=== PATIENT | female | born 1985 | race Caucasian/White ===

== ENCOUNTER 2020-03-14 11:06 | Emergency (ER) | payer OTHER, SELFPAY ==
[2020-03-14] VITALS (17 sets, daily range): BP systolic 110–169; BP diastolic 57–74; PULSE 81–114; RESP 16–24; O2SAT 99–100
[2020-03-14 11:24] LABS: Bacteria Urine None Seen; RBC Urine None Seen (0-5/HPF); WBC Urine None Seen (0-5/HPF)
--- NOTE | 2020-03-14 11:27 | ED_ITS ---
HPI - <Crystal ChandlerKENDRICK - Last Filed: 03/14/20 19:53> General Chief complaint: OB/Uterine Contractions Stated complaint: having backpain/cramping Time Seen by Provider: 03/14/20 11:07 Source: patient Mode of arrival: Ambulatory Limitations: no limitations History of Present Illness HPI Narrative: 34yo female who is currently 24 weeks . She has a history of multiple miscarriages, pre-eclampsia a still at 37 week post abruption, and insulin dependent diabetes (DMI), presents emergency department today for bilateral back pain that started yesterday. Patient noticed this morning she had some intermittent cramping and pressure that has since resolved. She states in the past she had a urinary tract infection in her only symptom was back pain. Patient states she is still nauseated, has occasional vomiting. Last vomited this morning. She states this morning her blood sugar was 120 which is normal for her. Patient states she has not been diagnosed with preeclampsia in this , she states her blood pressures have been normal. She felt normal movement this morning. Patient denies any vaginal bleeding, fevers, cough, shortness of breath, chest pain, dizziness, headaches, vision changes, leg pain, dysuria, or any other concerns. Patient : Yes Related Data Previous Rx's Medication Instructions Recorded INSULIN LISPRO (#HUMALOG (SHORT 0 units SQ QDAY #3 vial 04/30/12 ACTING)) albuterol sulfate [Proventil HFA] 0 INH 1 #1 inh 10/27/12 cyclobenzaprine 0 PO SEE INSTRUCTIONS PRN #90 tab 01/11/16 omeprazole 0 PO SEE INSTRUCTIONS #90 cap 01/11/16 Allergies Allergy/AdvReac Type Severity Reaction Status Date / Time adhesive [ADHESIVE] Allergy Unknown hives Verified 03/14/20 11:14 bacitracin Allergy Unknown hives Verified 03/14/20 11:14 [From NEOSPORIN ([id number])] neomycin Allergy Unknown hives Verified 03/14/20 11:14 [From NEOSPORIN ([id number])] polymyxin B Allergy Unknown hives Verified 03/14/20 11:14 [From NEOSPORIN ([id number])] metoclopramide [From Reglan] AdvReac Intermediate Agitated Verified 03/14/20 11:14 Review of Systems <KENDRICK Sotomayor - Last Filed: 03/14/20 19:53> Review of Systems Narrative: REVIEW OF SYSTEMS: GENERAL: Denies fever, chills, malaise, or wt. loss. HENT: No head trauma, sore throat, or dysphagia. EYES: No loss of vision, double vision, eye pain, or irritation. CARDIOVASCULAR: No chest pain, palpitations, or orthopnea. RESPIRATORY: No shortness of breath or cough. GASTROINTESTINAL: Reports nausea and vomiting throughout , see HPI. GENITOURINARY: No flank pain, urinary incontinence, hesitancy, frequency, or dysuria. Reports bilateral back pain, see HPI. MUSCULOSKELETAL: No pain, weakness, or trauma. INTEGUMENTARY: No rash, lesions, or pruritus. NEURO: No numbness, tingling, memory loss, confusion, or headaches. PSYCH: No behavior or mood changes. [facility] - <KENDRICK Sotomayor - Last Filed: 03/14/20 19:53> Past Medical History Medical history: Reports other Additional medical history: Pre-eclampsia Patient : Yes Family History Family history: Reports no significant family history Exam <KENDRICK Sotomayor - Last Filed: 03/14/20 19:53> Initial Vital Signs Initial Vital Signs: Vital Signs Pulse Rate 111 H 03/14/20 11:14 Blood Pressure 169/74 H 03/14/20 11:14 Pulse Oximetry 99 03/14/20 11:14 PHYSICAL EXAMINATION: GENERAL: Well groomed, alert, and cooperative. Answers questions promptly and appropriately. Vital signs noted. HENT: Normocephalic, atraumatic. Hearing intact. Oral mucosa is pink and moist. EYES: Conjunctiva pink, sclera white, no periorbital swelling. CARDIOVASCULAR: S1 and S2 sounds normal. Regular rate and rhythm, no murmurs, clicks, or bruits. No pedal edema. RESPIRATORY: Normal respiratory rate, trachea midline, airway patent. No stridor, nasal flaring or accessory muscle use. Lungs are clear in all wheeler without wheeze, rhonchi, or crackles. GASTROINTESTINAL: Bowel sounds normoactive. Abdomen is soft and non-tender. Abdominal distension adequate for gestational age. Uterine fundus palpable. GENITALURINARY: Very slight right CVA tenderness. MUSCULOSKELETAL: Normal gait and coordination. Equal tone and mass bilaterally. EXTREMITIES: CMS intact, no pedal edema. SKIN: Warm, dry, soft, appropriate color for ethnicity. No lesions, rashes, or wounds to visualized areas. NEURO: Alert and Oriented X 3. Good coordination. No ataxia, or sensory deficits, or cognitive issues. PSYCH: Appropriate affect and mood. <Kenia Garza DO - Last Filed: 03/23/20 07:49> Initial Vital Signs Initial Vital Signs: Vital Signs Pulse Rate 111 H 03/14/20 11:14 Blood Pressure 169/74 H 03/14/20 11:14 Pulse Oximetry 99 03/14/20 11:14 Course <Crystal KENDRICK Chandler - Last Filed: 03/14/20 19:53> Course Course Narrative: 1134: heart tones auscultated at 144bpm at the level of the umbilicus. Dr. Garza in room at this time to also evaluate patient. 1214: BP continues to decrease from 160 systolic to 130/58 at this time, labetalol was initially ordered, not given due to decreasing blood pressure. 1329: I spoke with Dr. Ignacia Cordova MD at the maternal [facility] at the [facility], discussed patient's history, exam, tests, test results. She recommended adding on a uric acid, urine creatinine ratio, in continuing with workup. 1337: I spoke with [employer] Dr. Hernandez, discussed patient's history, exam, test, test results. She advise a cervical length ultrasound. 1340: Patient states she is feeling a, has felt a slight cramp in the past 10 minutes, she also states ?this is also normal when baby moves ?. 1400: I spoke with Dr. Hernandez, advised her the preliminary report of cervical length was 4.7cm. She stated this is very reassuring. We discussed the patient is doing well, does not necessitate a visit from her in the ED at this point. Orders Ordered: Discontinued Medications Sodium Chloride (Normal Saline 0.9%) 1,000 mls @ 1,000 mls/hr IV BOLUS ONE Stop: 03/14/20 12:22 Last Infusion: 03/14/20 12:35 Dose: 0 mls/hr Documented by: Admin: 03/14/20 11:39 Dose: 1,000 mls/hr Documented by: BOB Labetalol HCl (Trandate) 10 mg IV NOW ONE Stop: 03/14/20 11:45 Last Admin: 03/14/20 12:16 Dose: Not Given Documented by: BOB Consultations Consultation #1: Patient staffed with Dr. Garza discussed test, test results, plan of care. Vital Signs Vital signs: Vital Signs - 8 hr 03/14/20 11:48 03/14/20 12:00 03/14/20 12:15 Pulse Rate 100 H 91 H 94 H Respiratory Rate 24 Blood Pressure 146/65 H 130/58 L Pulse Oximetry 99 99 99 03/14/20 12:16 03/14/20 12:30 03/14/20 12:45 Pulse Rate 114 H 86 87 Respiratory Rate 16 16 Blood Pressure 145/62 H 132/57 L 139/64 Pulse Oximetry 99 99 99 03/14/20 13:00 03/14/20 13:01 03/14/20 13:15 Pulse Rate 87 88 81 Respiratory Rate Blood Pressure 130/63 110/62 Pulse Oximetry 99 100 100 03/14/20 13:30 03/14/20 13:45 03/14/20 14:00 Pulse Rate 84 82 81 Respiratory Rate Blood Pressure 121/65 122/65 118/61 Pulse Oximetry 99 100 99 03/14/20 14:15 Pulse Rate 81 Respiratory Rate Blood Pressure 119/61 Pulse Oximetry 99 <Kenia Garza, DO - Last Filed: 03/23/20 07:49> Orders Ordered: Discontinued Medications Sodium Chloride (Normal Saline 0.9%) 1,000 mls @ 1,000 mls/hr IV BOLUS ONE Stop: 03/14/20 12:22 Last Infusion: 03/14/20 12:35 Dose: 0 mls/hr Documented by: Admin: 03/14/20 11:39 Dose: 1,000 mls/hr Documented by: BOB Labetalol HCl (Trandate) 10 mg IV NOW ONE Stop: 03/14/20 11:45 Last Admin: 03/14/20 12:16 Dose: Not Given Documented by: BOB Vital Signs Vital signs: Vital Signs - 8 hr 03/14/20 11:48 03/14/20 12:00 03/14/20 12:15 Pulse Rate 100 H 91 H 94 H Respiratory Rate 24 Blood Pressure 146/65 H 130/58 L Pulse Oximetry 99 99 99 03/14/20 12:16 03/14/20 12:30 03/14/20 12:45 Pulse Rate 114 H 86 87 Respiratory Rate 16 16 Blood Pressure 145/62 H 132/57 L 139/64 Pulse Oximetry 99 99 99 03/14/20 13:00 03/14/20 13:01 03/14/20 13:15 Pulse Rate 87 88 81 Respiratory Rate Blood Pressure 130/63 110/62 Pulse Oximetry 99 100 100 03/14/20 13:30 03/14/20 13:45 03/14/20 14:00 Pulse Rate 84 82 81 Respiratory Rate Blood Pressure 121/65 122/65 118/61 Pulse Oximetry 99 100 99 03/14/20 14:15 Pulse Rate 81 Respiratory Rate Blood Pressure 119/61 Pulse Oximetry 99 MDM - OB/Uterine Contractions <KENDRICK Sotomayor - Last Filed: 03/14/20 19:53> Medical Records Attestation: I reviewed the patient's medical records. Lab Data Attestation: I reviewed the patient's lab results. Result diagrams: 03/14/20 11:30 03/14/20 11:30 Labs: Lab Results 03/14/20 03/14/20 03/14/20 Range/Units 11:12 11:12 11:30 WBC 11.2 H (4.5-11.0) X10^3/uL RBC 4.90 (4.0-5.2) X10^6/uL Hgb 9.1 L (12.0-16.0) g/dL Hct 29.5 L (36-46) % MCV 60.3 L (80-100) fL MCH 18.6 L (26-34) PG MCHC 30.8 (30-36) % RDW 18.8 H (11.6-14.8) % Plt Count 295 (150-400) X10^3/uL Neut % (Auto) 83.4 H (50-75) % Lymph % (Auto) 9.2 L (25-40) % [place] % (Auto) 5.9 (3-14) % Eos % (Auto) 1.2 L (2-4) % Baso % (Auto) 0.3 (0-2) % Neut # (Auto) 9300 H (9954-8015) /uL Lymph # (Auto) 1000 L (4117-2277) /uL [place] # (Auto) 700 (0-900) /uL Eos # (Auto) 100 (0-450) /uL Baso # (Auto) 0 (0-100) /uL RBC Morphology Not Reportable Polychromasia 1+ H Poikilocytosis 1+ H Anisocytosis 3+ H Microcytosis 2+ H Ovalocytes 1+ H PT (10.1-12.7) SECONDS INR (0.9-1.3) APTT (26.4-36.2) SECONDS Sodium (137-145) mmol/L Potassium (3.4-5.1) mmol/L Chloride (98-107) mmol/L Carbon Dioxide (22-32) mmol/L BUN (7-17) mg/dL Creatinine (0.52-1.04) mg/dL Estimated GFR (>60) mL/min BUN/Creatinine Ratio (6-22) Glucose (70-100) mg/dL Uric Acid (2.5-6.2) mg/dL Calcium (8.4-10.2) mg/dL Total Bilirubin (0.2-1.3) mg/dL AST (14-36) IU/L ALT (<35) IU/L Alkaline Phosphatase (38-126) U/L Total Protein (6.3-8.2) g/dL Albumin (3.5-5.0) g/dL Globulin (1.7-4.1) g/dL Albumin/Globulin Ratio (1.0-2.8) Lipase (23-300) U/L Urine RBC None seen (0-5/HPF) Urine WBC None seen (0-5/HPF) Ur Squamous Epith Cells >30 /hpf H (0-5/HPF) Urine Bacteria None seen (None) Ur Culture Indicated? Cult not indicated U Random Total Protein 9 (0-12) mg/dL Urine Creatinine 175.8 mg/dL COVID-19 PCR (Negative) Blood Type 03/14/20 03/14/20 03/14/20 Range/Units 11:30 11:30 11:30 WBC (4.5-11.0) X10^3/uL RBC (4.0-5.2) X10^6/uL Hgb (12.0-16.0) g/dL Hct (36-46) % MCV (80-100) fL MCH (26-34) PG MCHC (30-36) % RDW (11.6-14.8) % Plt Count (150-400) X10^3/uL Neut % (Auto) (50-75) % Lymph % (Auto) (25-40) % [place] % (Auto) (3-14) % Eos % (Auto) (2-4) % Baso % (Auto) (0-2) % Neut # (Auto) (5259-1102) /uL Lymph # (Auto) (5214-3321) /uL [place] # (Auto) (0-900) /uL Eos # (Auto) (0-450) /uL Baso # (Auto) (0-100) /uL RBC Morphology Polychromasia Poikilocytosis Anisocytosis Microcytosis Ovalocytes PT 11.6 (10.1-12.7) SECONDS INR 1.0 (0.9-1.3) APTT 30 (26.4-36.2) SECONDS Sodium 134 L (137-145) mmol/L Potassium 3.7 (3.4-5.1) mmol/L Chloride 102 (98-107) mmol/L Carbon Dioxide 25 (22-32) mmol/L BUN 9 (7-17) mg/dL Creatinine 0.51 L (0.52-1.04) mg/dL Estimated GFR > 60.0 (>60) mL/min BUN/Creatinine Ratio 17.6 (6-22) Glucose 165 H (70-100) mg/dL Uric Acid (2.5-6.2) mg/dL Calcium 8.5 (8.4-10.2) mg/dL Total Bilirubin 0.3 (0.2-1.3) mg/dL AST 13 L (14-36) IU/L ALT 8 (<35) IU/L Alkaline Phosphatase 113 (38-126) U/L Total Protein 7.1 (6.3-8.2) g/dL Albumin 3.6 (3.5-5.0) g/dL Globulin 3.5 (1.7-4.1) g/dL Albumin/Globulin Ratio 1.0 (1.0-2.8) Lipase 18 L (23-300) U/L Urine RBC (0-5/HPF) Urine WBC (0-5/HPF) Ur Squamous Epith Cells (0-5/HPF) Urine Bacteria (None) Ur Culture Indicated? U Random Total Protein (0-12) mg/dL Urine Creatinine mg/dL COVID-19 PCR (Negative) Blood Type O Negative 03/14/20 03/14/20 Range/Units 11:30 11:30 WBC (4.5-11.0) X10^3/uL RBC (4.0-5.2) X10^6/uL Hgb (12.0-16.0) g/dL Hct (36-46) % MCV (80-100) fL MCH (26-34) PG MCHC (30-36) % RDW (11.6-14.8) % Plt Count (150-400) X10^3/uL Neut % (Auto) (50-75) % Lymph % (Auto) (25-40) % [place] % (Auto) (3-14) % Eos % (Auto) (2-4) % Baso % (Auto) (0-2) % Neut # (Auto) (9045-7056) /uL Lymph # (Auto) (6580-4509) /uL [place] # (Auto) (0-900) /uL Eos # (Auto) (0-450) /uL Baso # (Auto) (0-100) /uL RBC Morphology Polychromasia Poikilocytosis Anisocytosis Microcytosis Ovalocytes PT (10.1-12.7) SECONDS INR (0.9-1.3) APTT (26.4-36.2) SECONDS Sodium (137-145) mmol/L Potassium (3.4-5.1) mmol/L Chloride (98-107) mmol/L Carbon Dioxide (22-32) mmol/L BUN (7-17) mg/dL Creatinine (0.52-1.04) mg/dL Estimated GFR (>60) mL/min BUN/Creatinine Ratio (6-22) Glucose (70-100) mg/dL Uric Acid 2.4 L (2.5-6.2) mg/dL Calcium (8.4-10.2) mg/dL Total Bilirubin (0.2-1.3) mg/dL AST (14-36) IU/L ALT (<35) IU/L Alkaline Phosphatase (38-126) U/L Total Protein (6.3-8.2) g/dL Albumin (3.5-5.0) g/dL Globulin (1.7-4.1) g/dL Albumin/Globulin Ratio (1.0-2.8) Lipase (23-300) U/L Urine RBC (0-5/HPF) Urine WBC (0-5/HPF) Ur Squamous Epith Cells (0-5/HPF) Urine Bacteria (None) Ur Culture Indicated? U Random Total Protein (0-12) mg/dL Urine Creatinine mg/dL COVID-19 PCR Negative (Negative) Blood Type Urine Dip Bedside Urine Glucose 500 mg/dl Bedside Urine Bilirubin - Negative Bedside Urine Ketone - Negative Urine Specific [place] 1.020 Bedside Urine Occult Blood - Negative Bedside Urine pH 6 Bedside Urine Protein +/- 15 Bedside Urine Urobilinogen - Negative Bedside Urine Nitrite - Negative Bedside Urine Leukocytes - Negative Esterase Imaging Data abdominal US: Radiologist's Impression: [address] [address] Ultrasound Report Signed Patient: Surekha Betancourt [facility]#: [id number] : 1985Acct:[id number] Age/Sex: 34 / FDate of Service: 03/14/20 Loc: ED Accession Number: [id number] Procedure: US abdomen complete Ordering Provider: Kenia Garza D.O. PROCEDURE: US ABDOMEN COMPLETE INDICATIONS: flank pain and TECHNIQUE: Real-time scanning was performed of the abdominal and retroperitoneal organs, with image documentation. COMPARISON: None. FINDINGS: Liver: Normal size. Increased in echogenicity. Portal vein demonstrates expected hepatopetal flow. Main portal vein measures 0.8 cm in diameter, within normal limits. Gallbladder: Partially contracted. Not NPO. No stones or sludge. Normal gallbladder wall thickness. No pericholecystic fluid. Negative sonographic Duran's sign. Biliary ducts: Intrahepatic bile ducts are non-dilated. Extrahepatic bile duct caliber measures 3 mm. Normal is 6-7 mm or less in diameter, or 10 mm or less post-cholecystectomy. Pancreas: Not visualized. Spleen: Spleen is normal in size and homogeneous in echotexture. Kidneys: Kidneys are normal in size and echotexture. Right kidney measures 11 cm long; left kidney measures 12.5 cm long. No hydronephrosis or nephrolithiasis. No solid masses. Right mid peripelvic cyst with internal echoes measuring 1.7 x 1.6 x 1.3 cm. Inferior right kidney is not well seen due to bowel gas. Aorta: Visualized aorta is normal in caliber at less than 3 cm. Iliacs: Not well seen. IVC: Intrahepatic inferior vena cava is patent. Miscellaneous: No free abdominal fluid. heart rate 152 BPM. IMPRESSION: Exam is somewhat limited by the sonographic windows and nonfasting exam. 1. No acute cholecystitis. No gallstones. No free fluid. 2. Increased hepatic echogenicity most consistent with hepatic steatosis. Other forms of hepatocellular disease could have similar appearance. 3. No hydronephrosis. 4. Mildly complex appearing right peripelvic cysts measuring 1.7 cm. Visualization of this region is limited. -this could be further evaluated on renal ultrasound . 5. heart rate 152 BPM. Dictated by: Jose Genao M.D. on 03/14/2020 at 12:40 Approved by: Jose Genao M.D. on 03/14/2020 at 12:46 Transvaginal US: Radiologist's Impression: [place] [address] Ultrasound Report Signed Patient: Surekha Betancourt#: [id number] : 1985Acct:[id number] Age/Sex: 34 / FDate of Service: 03/14/20 Loc: ED Accession Number: [id number] Procedure: US OB transvaginal Ordering Provider: Crystal Chandler PROCEDURE: US OB TRANSVAGINAL INDICATIONS: CERVICAL LENGTH OUTSIDE/PRIOR DATING DATA: Last menstrual period (LMP): Unknown. LMP-based estimated date of delivery (SOLO): Unknown. First dating scan (date and location): Not available. Estimated date of delivery (SOLO) from first dating scan: Not available. TECHNIQUE: Real-time scanning was performed of the fetus, with image documentation. Endovaginal scanning: Performed COMPARISON: None. FINDINGS: Limited exam shows single live intrauterine . heart rate is 157 beats per minute. Transvaginal image shows cervical length measures 4.8 centimeters which is within normal limits. Trace amount of endocervical fluid is seen. IMPRESSION: 1. Single live intrauterine with heart rate measures 157 beats per minute. 2. Cervical length measures 4.8 centimeters. Trace amount of endocervical fluid is seen. Dictated by: Joce Herring M.D. on 03/14/2020 at 14:22 Approved by: Joce Herring M.D. on 03/14/2020 at 14:[address] [facility] Narrative Medical decision making narrative: 34-year-old female who is 24 weeks , currently high risk, history of preeclampsia, diabetes type 1/insulin-dependent, presents emergency department for lower back pain and intermittent abdominal cramping. Patient initially had elevated blood pressure with a systolic ranging in the 160s, this decreased after about an hour without intervention to systolic in the 130s. She was extensively evaluated for preeclampsia, liver enzymes within normal limits, normal platelets, small amount of protein was seen in urine, uric acid within normal limits, urine creatinine ratio within normal limits. Additionally, patient was evaluated for labor which is less likely in this case. Cervical length remains at 4.7 cm per transvaginal ultrasound, heart rate in the 150s which is reassuring, abdominal ultrasound without any acute findings. OB Dr. Cordova consulted at and maternal care who manages patient's , requested evaluation of the uric acid and urine creatinine ratio as well as a cervical length-suggested that if these findings are within normal limits they can see her in clinic as planned tomorrow morning. Additionally, consulted with OBGYN Dr. Hernandez who was reassured by laboratory work and cervical length. Patient reported to have improved symptoms in her emergency department stay, the cramping that she felt well here she states is also common with movement. Blood pressure remains low in the systolic 130s to 120s. No headache, abdominal pain, signs of urinary tract infection, or signs of systemic infection such as fever or tachycardia. The blood cell count was 11.2, most likely related to . Sodium was slightly low at 134 , IV fluids were given. No concerns for bleeding, as patient continues to deny vaginal discharge. Return precautions given for new or worsening symptoms, explained strict return for any concerns. Patient agreed to plan of care verbalized understanding. <Kenia Garza, - Last Filed: 03/23/20 07:49> Lab Data Labs: Lab Results 03/14/20 03/14/20 03/14/20 Range/Units 11:12 11:12 11:30 WBC 11.2 H (4.5-11.0) X10^3/uL RBC 4.90 (4.0-5.2) X10^6/uL Hgb 9.1 L (12.0-16.0) g/dL Hct 29.5 L (36-46) % MCV 60.3 L (80-100) fL MCH 18.6 L (26-34) PG MCHC 30.8 (30-36) % RDW 18.8 H (11.6-14.8) % Plt Count 295 (150-400) X10^3/uL Neut % (Auto) 83.4 H (50-75) % Lymph % (Auto) 9.2 L (25-40) % [place] % (Auto) 5.9 (3-14) % Eos % (Auto) 1.2 L (2-4) % Baso % (Auto) 0.3 (0-2) % Neut # (Auto) 9300 H (7394-7067) /uL Lymph # (Auto) 1000 L (7934-9144) /uL [place] # (Auto) 700 (0-900) /uL Eos # (Auto) 100 (0-450) /uL Baso # (Auto) 0 (0-100) /uL RBC Morphology Not Reportable Polychromasia 1+ H Poikilocytosis 1+ H Anisocytosis 3+ H Microcytosis 2+ H Ovalocytes 1+ H PT (10.1-12.7) SECONDS INR (0.9-1.3) APTT (26.4-36.2) SECONDS Sodium (137-145) mmol/L Potassium (3.4-5.1) mmol/L Chloride (98-107) mmol/L Carbon Dioxide (22-32) mmol/L BUN (7-17) mg/dL Creatinine (0.52-1.04) mg/dL Estimated GFR (>60) mL/min BUN/Creatinine Ratio (6-22) Glucose (70-100) mg/dL Uric Acid (2.5-6.2) mg/dL Calcium (8.4-10.2) mg/dL Total Bilirubin (0.2-1.3) mg/dL AST (14-36) IU/L ALT (<35) IU/L Alkaline Phosphatase (38-126) U/L Total Protein (6.3-8.2) g/dL Albumin (3.5-5.0) g/dL Globulin (1.7-4.1) g/dL Albumin/Globulin Ratio (1.0-2.8) Lipase (23-300) U/L Urine RBC None seen (0-5/HPF) Urine WBC None seen (0-5/HPF) Ur Squamous Epith Cells >30 /hpf H (0-5/HPF) Urine Bacteria None seen (None) Ur Culture Indicated? Cult not indicated U Random Total Protein 9 (0-12) mg/dL Urine Creatinine 175.8 mg/dL COVID-19 PCR (Negative) Blood Type 03/14/20 03/14/20 03/14/20 Range/Units 11:30 11:30 11:30 WBC (4.5-11.0) X10^3/uL RBC (4.0-5.2) X10^6/uL Hgb (12.0-16.0) g/dL Hct (36-46) % MCV (80-100) fL MCH (26-34) PG MCHC (30-36) % RDW (11.6-14.8) % Plt Count (150-400) X10^3/uL Neut % (Auto) (50-75) % Lymph % (Auto) (25-40) % [place] % (Auto) (3-14) % Eos % (Auto) (2-4) % Baso % (Auto) (0-2) % Neut # (Auto) (2329-6881) /uL Lymph # (Auto) (7324-9152) /uL [place] # (Auto) (0-900) /uL Eos # (Auto) (0-450) /uL Baso # (Auto) (0-100) /uL RBC Morphology Polychromasia Poikilocytosis Anisocytosis Microcytosis Ovalocytes PT 11.6 (10.1-12.7) SECONDS INR 1.0 (0.9-1.3) APTT 30 (26.4-36.2) SECONDS Sodium 134 L (137-145) mmol/L Potassium 3.7 (3.4-5.1) mmol/L Chloride 102 (98-107) mmol/L Carbon Dioxide 25 (22-32) mmol/L BUN 9 (7-17) mg/dL Creatinine 0.51 L (0.52-1.04) mg/dL Estimated GFR > 60.0 (>60) mL/min BUN/Creatinine Ratio 17.6 (6-22) Glucose 165 H (70-100) mg/dL Uric Acid (2.5-6.2) mg/dL Calcium 8.5 (8.4-10.2) mg/dL Total Bilirubin 0.3 (0.2-1.3) mg/dL AST 13 L (14-36) IU/L ALT 8 (<35) IU/L Alkaline Phosphatase 113 (38-126) U/L Total Protein 7.1 (6.3-8.2) g/dL Albumin 3.6 (3.5-5.0) g/dL Globulin 3.5 (1.7-4.1) g/dL Albumin/Globulin Ratio 1.0 (1.0-2.8) Lipase 18 L (23-300) U/L Urine RBC (0-5/HPF) Urine WBC (0-5/HPF) Ur Squamous Epith Cells (0-5/HPF) Urine Bacteria (None) Ur Culture Indicated? U Random Total Protein (0-12) mg/dL Urine Creatinine mg/dL COVID-19 PCR (Negative) Blood Type O Negative 03/14/20 03/14/20 Range/Units 11:30 11:30 WBC (4.5-11.0) X10^3/uL RBC (4.0-5.2) X10^6/uL Hgb (12.0-16.0) g/dL Hct (36-46) % MCV (80-100) fL MCH (26-34) PG MCHC (30-36) % RDW (11.6-14.8) % Plt Count (150-400) X10^3/uL Neut % (Auto) (50-75) % Lymph % (Auto) (25-40) % [place] % (Auto) (3-14) % Eos % (Auto) (2-4) % Baso % (Auto) (0-2) % Neut # (Auto) (1276-2187) /uL Lymph # (Auto) (7879-2397) /uL [place] # (Auto) (0-900) /uL Eos # (Auto) (0-450) /uL Baso # (Auto) (0-100) /uL RBC Morphology Polychromasia Poikilocytosis Anisocytosis Microcytosis Ovalocytes PT (10.1-12.7) SECONDS INR (0.9-1.3) APTT (26.4-36.2) SECONDS Sodium (137-145) mmol/L Potassium (3.4-5.1) mmol/L Chloride (98-107) mmol/L Carbon Dioxide (22-32) mmol/L BUN (7-17) mg/dL Creatinine (0.52-1.04) mg/dL Estimated GFR (>60) mL/min BUN/Creatinine Ratio (6-22) Glucose (70-100) mg/dL Uric Acid 2.4 L (2.5-6.2) mg/dL Calcium (8.4-10.2) mg/dL Total Bilirubin (0.2-1.3) mg/dL AST (14-36) IU/L ALT (<35) IU/L Alkaline Phosphatase (38-126) U/L Total Protein (6.3-8.2) g/dL Albumin (3.5-5.0) g/dL Globulin (1.7-4.1) g/dL Albumin/Globulin Ratio (1.0-2.8) Lipase (23-300) U/L Urine RBC (0-5/HPF) Urine WBC (0-5/HPF) Ur Squamous Epith Cells (0-5/HPF) Urine Bacteria (None) Ur Culture Indicated? U Random Total Protein (0-12) mg/dL Urine Creatinine mg/dL COVID-19 PCR Negative (Negative) Blood Type Urine Dip Bedside Urine Glucose 500 mg/dl Bedside Urine Bilirubin - Negative Bedside Urine Ketone - Negative Urine Specific [place] 1.020 Bedside Urine Occult Blood - Negative Bedside Urine pH 6 Bedside Urine Protein +/- 15 Bedside Urine Urobilinogen - Negative Bedside Urine Nitrite - Negative Bedside Urine Leukocytes - Negative Esterase Discharge Plan Departure Patient Disposition: Home Clinical Impression: Back pain Qualifiers: Back pain location: low back pain Chronicity: unspecified Back pain laterality: bilateral Sciatica presence: without sciatica Qualified Code(s): M54.5 - Low back pain Discharge Date/Time: 03/14/20 14:43 Activity Restrictions/Additional Instructions: Thank you for entrusting me with your care today. As discussed, your ultrasounds and laboratory work are within normal limits. heart rate is 152, and t here is no concern of cervical dilation. No concern of urinary tract infection. I spoke with the [facility] at the [facility] in [place], they are aware you are being seen here in the ED and they plan to see you tomorrow morning as scheduled. Continue to drink plenty of fluids and rest. Return emergency department immediately for any new or worsening symptoms. Prescriptions: No Action INSULIN LISPRO (#HUMALOG (SHORT ACTING)) 0 units SQ QDAY Qty: 3 RF: 2 albuterol sulfate [Proventil HFA] 90 MCG/PUFF HFA aerosol inhaler 0 INH 1 Qty: 1 RF: 3 omeprazole 20 MG capsule,delayed release(DR/EC) 0 PO SEE INSTRUCTIONS Qty: 90 RF: 0 cyclobenzaprine 5 MG tablet 0 PO SEE INSTRUCTIONS PRNQty: 90 RF: 0 Referrals: Madeline Lee DO [Primary Care Provider] - <Kenia Garza DO - Last Filed: 03/23/20 07:49> Cosign ED Attending Jakeature Attestation: I was immediately available in the department for consultation. Documentation has been reviewed. I agree with assessment and plan.
[2020-03-14 11:29] LABS: Culture Indicated Urine Cult Not Indicated; Squamous Epithelial Cell Urine >30 /HPF (0-5/HPF)
[2020-03-14 11:35] LABS: Add Manual Diff / Slide Review NO; Basophils Absolute Auto 0 /uL (0-100); Basophils Percent Auto 0.3 % (0-2); Eosinophils Absolute Auto 100 /uL (0-450); Eosinophils Percent Auto 1.2 % (2-4); Hematocrit 29.5 % (36-46); Hemoglobin 9.1 g/dL (12.0-16.0); Lymphocytes Absolute Auto 1000 /uL (1100-4500); Lymphocytes Percent Auto 9.2 % (25-40); Mean Corpuscular HGB Conc 30.8 % (30-36); Mean Corpuscular Hemoglobin 18.6 PG (26-34); Mean Corpuscular Volume 60.3 fL (80-100); Monocytes Absolute Auto 700 /uL (0-900); Monocytes Percent Auto 5.9 % (3-14); Neutrophils Absolute Auto 9300 /uL (1500-7000); Neutrophils Percent Auto 83.4 % (50-75); Platelet Count 295 X10^3/uL (150-400); Red Cell Distribution Width 18.8 % (11.6-14.8); White Blood Cell Count 11.2 X10^3/uL (4.5-11.0)
[2020-03-14] MEDS: SODIUM CHLORIDE 0.9% 1,000 ML 1000 ML IV (11:39)
[2020-03-14 11:44] LABS: Prothrombin Time 11.6 SECONDS (10.1-12.7)
[2020-03-14 11:46] LABS: Alanine Aminotransferase 8 IU/L (<35); Albumin 3.6 g/dL (3.5-5.0); Alkaline Phosphatase 113 U/L (38-126); Aspartate Aminotransferase 13 IU/L (14-36); BUN Creatinine Ratio 17.6 (6-22); Bilirubin Total 0.3 mg/dL (0.2-1.3); Blood Urea Nitrogen 9 mg/dL (7-17); Calcium 8.5 mg/dL (8.4-10.2); Carbon Dioxide 25 mmol/L (22-32); Chloride 102 mmol/L (98-107); Estimated Glomerular Filt Rate > 60.0 mL/min (>60); Globulin 3.5 g/dL (1.7-4.1); Glucose 165 mg/dL (70-100); HEMOLYSIS < 15 (0-50); Lipase 18 U/L (23-300); PTT Partial Thromboplastin Tim 30 SECONDS (26.4-36.2); Potassium 3.7 mmol/L (3.4-5.1); Sodium 134 mmol/L (137-145); Total Protein 7.1 g/dL (6.3-8.2)
[2020-03-14 11:53] LABS: Anisocytosis 3+; Microcytosis 2+; Ovalocytes 1+; Poikilocytosis 1+; Polychromasia 1+
[2020-03-14 11:57] LABS: COVID19 -Nasal RAPID Negative (Negative)
--- NOTE | 2020-03-14 13:38 | DI.US.S_ITS ---
PROCEDURE: US OB TRANSVAGINAL INDICATIONS: CERVICAL LENGTH OUTSIDE/PRIOR DATING DATA: Last menstrual period (LMP): Unknown. LMP-based estimated date of delivery (SOLO): Unknown. First dating scan (date and location): Not available. Estimated date of delivery (SOLO) from first dating scan: Not available. TECHNIQUE: Real-time scanning was performed of the fetus, with image documentation. Endovaginal scanning: Performed COMPARISON: None. FINDINGS: Limited exam shows single live intrauterine . heart rate is 157 beats per minute. Transvaginal image shows cervical length measures 4.8 centimeters which is within normal limits. Trace amount of endocervical fluid is seen. IMPRESSION: 1. Single live intrauterine with heart rate measures 157 beats per minute. 2. Cervical length measures 4.8 centimeters. Trace amount of endocervical fluid is seen. Dictated by: Joce Herring M.D. on 03/14/2020 at 14:22 Approved by: Joce Herring M.D. on 03/14/2020 at 14:24
[2020-03-14 13:54] LABS: Uric Acid 2.4 mg/dL (2.5-6.2)
[2020-03-14 14:11] LABS: Creatinine Urine Random 175.8 mg/dL; Protein (Total) Urine Random 9 mg/dL (0-12)
== END 2020-03-14 14:43 | disposition home or self-care (01) ==
PROVIDERS: Emergency Medicine; Emergency Provider Nurse Practitioner; Family Provider Family Medicine; PCP Family Medicine
DX: O26.892 Other specified pregnancy related conditions, second trimester (principal); M54.5 Low back pain; E11.9 Type 2 diabetes mellitus without complications; Z3A.24 24 weeks gestation of pregnancy
CPT/HCPCS: 36415; 76700; 76817; 80053; 81003; 81015; 82570; 83690; 84156; 84550; 85025; 85610; 85730; 86900; 86901; 87635; 96360; 99284

== ENCOUNTER 2020-04-02 20:17 | Outpatient (CLI) | payer OTHER, SELFPAY ==
[2020-04-02 21:21] LABS: Basophils Absolute Auto 100 /uL (0-100); Basophils Percent Auto 0.4 % (0-2); Eosinophils Absolute Auto 200 /uL (0-450); Eosinophils Percent Auto 1.2 % (2-4); Hematocrit 27.8 % (36-46); Hemoglobin 8.5 g/dL (12.0-16.0); Lymphocytes Absolute Auto 1900 /uL (1100-4500); Mean Corpuscular HGB Conc 30.5 % (30-36); Mean Corpuscular Hemoglobin 18.6 PG (26-34); Mean Corpuscular Volume 61.2 fL (80-100); Monocytes Absolute Auto 800 /uL (0-900); Monocytes Percent Auto 5.8 % (3-14); Neutrophils Absolute Auto 10600 /uL (1500-7000); Neutrophils Percent Auto 78.6 % (50-75); Platelet Count 260 X10^3/uL (150-400); Red Blood Cell Count 4.54 X10^6/uL (4.0-5.2); Red Cell Distribution Width 18.8 % (11.6-14.8); White Blood Cell Count 13.5 X10^3/uL (4.5-11.0)
[2020-04-02 21:26] LABS: Add Manual Diff / Slide Review SLIDE REVIEW
[2020-04-02 21:34] LABS: Appearance Urine UA CLEAR; Bilirubin Urine UA NEGATIVE (NEGATIVE); Color Urine UA YELLOW; Glucose Urine UA TRACE g/dL (Negative); Ketones Urine UA TRACE (NEGATIVE); Leukocyte Esterase Urine UA NEGATIVE (NEGATIVE); Nitrite Urine UA NEGATIVE (Negative); Occult Blood Urine UA NEGATIVE (Negative); Protein Urine UA TRACE (Negative); Urobilinogen Urine UA 0.2 E.U./dL (0.2); pH Urine UA 6.5 (4.5-8.0)
[2020-04-02 21:45] LABS: Aspartate Aminotransferase 14 IU/L (14-36); BUN Creatinine Ratio 21.4 (6-22); Blood Urea Nitrogen 9 mg/dL (7-17); Estimated Glomerular Filt Rate > 60.0 mL/min (>60); Uric Acid 2.3 mg/dL (2.5-6.2)
[2020-04-02 22:07] LABS: Creatinine Urine Random 162.4 mg/dL; Protein (Total) Urine Random 13 mg/dL (0-12); Protein Creatinine Ratio Urine 0.08 GRAM/24H
[2020-04-02 22:13] LABS: Anisocytosis 2+; Microcytosis 2+; Ovalocytes 1+; Polychromasia 1+
--- NOTE | 2020-04-03 10:21 | PM.OBTRLD ---
Visit Information Visit Information Date of evaluation: 04/02/20 On-call OB Provider: Sumi Shields Reason for Evaluation: Yes other Comments/Additional reasons for admission: 34yo at 26w4d type 1 diabetic who receives her care through the who presents for pre-eclampsia lab work as requested by the . Pt reportedly with elevated BPs at home, in addition to a mild headache that resolved with tylenol. No RUQ pain, swelling, vision changes. [facility] Surgical History (Updated 10/08/17 @ 05:59 by Madeline Lee DO) Status post delivery Social History Smoking Status: Never smoker Objective Labs Result Diagrams: 04/02/20 21:10 04/02/20 21:10 Labs: Laboratory Results - last 24 hr 04/02/20 04/02/20 04/02/20 20:18 20:18 21:10 WBC 13.5 H RBC 4.54 Hgb 8.5 L Hct 27.8 L MCV 61.2 L MCH 18.6 L MCHC 30.5 RDW 18.8 H Plt Count 260 Neut % (Auto) 78.6 H Lymph % (Auto) 14.0 L [place] % (Auto) 5.8 Eos % (Auto) 1.2 L Baso % (Auto) 0.4 Neut # (Auto) 99194 H Lymph # (Auto) 1900 [place] # (Auto) 800 Eos # (Auto) 200 Baso # (Auto) 100 RBC Morphology See below Polychromasia 1+ H Anisocytosis 2+ H Microcytosis 2+ H Ovalocytes 1+ H BUN Creatinine Estimated GFR BUN/Creatinine Ratio Uric Acid AST Urine Color Yellow Urine Appearance Clear Urine pH 6.5 Ur Specific [place] 1.020 Urine Protein Trace H Urine Glucose (UA) Trace H Urine Ketones Trace H Urine Occult Blood Negative Urine Nitrate Negative Urine Bilirubin Negative Urine Urobilinogen 0.2 Ur Leukocyte Esterase Negative U Random Total Protein 13 H Urine Creatinine 162.4 Protein/Creatinin Ratio 0.08 04/02/20 21:10 WBC RBC Hgb Hct MCV MCH MCHC RDW Plt Count Neut % (Auto) Lymph % (Auto) [place] % (Auto) Eos % (Auto) Baso % (Auto) Neut # (Auto) Lymph # (Auto) [place] # (Auto) Eos # (Auto) Baso # (Auto) RBC Morphology Polychromasia Anisocytosis Microcytosis Ovalocytes BUN 9 Creatinine 0.42 L Estimated GFR > 60.0 BUN/Creatinine Ratio 21.4 Uric Acid 2.3 L AST 14 Urine Color Urine Appearance Urine pH Ur Specific [place] Urine Protein Urine Glucose (UA) Urine Ketones Urine Occult Blood Urine Nitrate Urine Bilirubin Urine Urobilinogen Ur Leukocyte Esterase U Random Total Protein Urine Creatinine Protein/Creatinin Ratio Evaluation Evaluation Baseline heart rate: 155 Variability: Moderate (11-25) monitor accelerations: Present monitor decelerations: Absent Category of Tracing: Reactive Laboratory results: Laboratory Tests 04/02/20 04/02/20 04/02/20 20:18 20:18 21:10 WBC 13.5 H RBC 4.54 Hgb 8.5 L Hct 27.8 L MCV 61.2 L MCH 18.6 L MCHC 30.5 RDW 18.8 H Plt Count 260 Neut % (Auto) 78.6 H Lymph % (Auto) 14.0 L [place] % (Auto) 5.8 Eos % (Auto) 1.2 L Baso % (Auto) 0.4 Neut # (Auto) 91885 H Lymph # (Auto) 1900 [place] # (Auto) 800 Eos # (Auto) 200 Baso # (Auto) 100 RBC Morphology See below Polychromasia 1+ H Anisocytosis 2+ H Microcytosis 2+ H Ovalocytes 1+ H BUN Creatinine Estimated GFR BUN/Creatinine Ratio Uric Acid AST Urine Color Yellow Urine Appearance Clear Urine pH 6.5 Ur Specific [place] 1.020 Urine Protein Trace H Urine Glucose (UA) Trace H Urine Ketones Trace H Urine Occult Blood Negative Urine Nitrate Negative Urine Bilirubin Negative Urine Urobilinogen 0.2 Ur Leukocyte Esterase Negative U Random Total Protein 13 H Urine Creatinine 162.4 Protein/Creatinin Ratio 0.08 04/02/20 21:10 WBC RBC Hgb Hct MCV MCH MCHC RDW Plt Count Neut % (Auto) Lymph % (Auto) [place] % (Auto) Eos % (Auto) Baso % (Auto) Neut # (Auto) Lymph # (Auto) [place] # (Auto) Eos # (Auto) Baso # (Auto) RBC Morphology Polychromasia Anisocytosis Microcytosis Ovalocytes BUN 9 Creatinine 0.42 L Estimated GFR > 60.0 BUN/Creatinine Ratio 21.4 Uric Acid 2.3 L AST 14 Urine Color Urine Appearance Urine pH Ur Specific [place] Urine Protein Urine Glucose (UA) Urine Ketones Urine Occult Blood Urine Nitrate Urine Bilirubin Urine Urobilinogen Ur Leukocyte Esterase U Random Total Protein Urine Creatinine Protein/Creatinin Ratio Diagnosis, Plan/Disposition Final Diagnosis (1) Elevated blood pressure affecting in second trimester, antepartum: Status: Acute (2) DM type 1 (diabetes mellitus, type 1): Status: Acute Plan/Disposition Plan: 34yo at 26w4d here for pre-eclampsia labs as requested by the [facility]. Normotensive throughout her stay. Lab work without evidence of pre-eclampsia/HELLP. Pt is quite anemic, encouraged her to discuss this with her primary OB. Safe for d/c home. OB Disposition: home
== END 2020-04-02 22:13 | disposition home or self-care (01) ==
LOC: OB 04-05 07:03
PROVIDERS: Family Provider Family Medicine; PCP Family Medicine; Referring Provider Family Medicine; Visit Provider Family Medicine
DX: O24.012 Pre-existing type 1 diabetes mellitus, in pregnancy, second trimester (principal); R03.0 Elevated blood-pressure reading, without diagnosis of hypertension; O26.22 Pregnancy care for patient with recurrent pregnancy loss, second trimester; Z3A.26 26 weeks gestation of pregnancy
CPT/HCPCS: 36415; 59025; 81003; 82570; 84156; 84450; 84550; 85025; G0378; G0379

== ENCOUNTER 2020-04-15 12:07 | Outpatient (CLI) | payer OTHER, SELFPAY ==
--- NOTE | 2020-04-15 13:20 | PM.OBTRLD ---
Visit Information Visit Information Date of evaluation: 04/15/20 On-call OB Provider: Adela River Reason for Evaluation: Yes non-stress test Comments/Additional reasons for admission: Patient is a 34yo at 28 weeks gestation who is receiving care at the [facility]. History is significant for type 1 diabetes, preeclampsia in a previous as well as 37 week demise. She came to the center today due to lower extremity edema and headache. She has not had contractions, leaking or bleeding and reports good movement. She was last seen for a regular OB visit 4 days ago. She is seen weekly at the [facility]. Vital Signs Vital Signs: Temperature 37.1? blood pressure 116/59 heart rate 76 PFSH Surgical History Status post delivery Social History Smoking Status: Never smoker Evaluation Evaluation Baseline heart rate: 130 Variability: Moderate (11-25) monitor accelerations: Present monitor decelerations: Absent Category of Tracing: Reactive Diagnosis, Plan/Disposition Final Diagnosis (1) 28 weeks gestation of : Status: Acute (2) DM type 1 (diabetes mellitus, type 1): Status: Acute Plan/Disposition Plan: Patient is a 34-year-old at 28 gestation here with complaints of headache and lower extremity edema with concerns for preeclampsia. Blood pressure was normal at 116/59, very reassuring against preeclampsia. center RN did not notice significant edema. NST reactive. Patient was appreciative of reassurance. She was offered Tylenol for her headache which she declined. She was encouraged to drink well and follow-up as scheduled with her OB at the [facility] next week. OB Disposition: home
[2020-04-15 13:38] LABS: RBC Urine None Seen (0-5/HPF)
[2020-04-15 13:39] LABS: Appearance Urine UA CLEAR; Bilirubin Urine UA NEGATIVE (NEGATIVE); Color Urine UA YELLOW; Glucose Urine UA 1+ g/dL (Negative); Ketones Urine UA NEGATIVE (NEGATIVE); Leukocyte Esterase Urine UA NEGATIVE (NEGATIVE); Nitrite Urine UA NEGATIVE (Negative); Occult Blood Urine UA NEGATIVE (Negative); Protein Urine UA TRACE (Negative); Urobilinogen Urine UA 0.2 E.U./dL (0.2)
[2020-04-15 13:44] LABS: pH Urine UA 6.5 (4.5-8.0)
[2020-04-15 13:50] LABS: Squamous Epithelial Cell Urine >30 /HPF (0-5/HPF); WBC Urine 1-5/HPF (0-5/HPF)
[2020-04-15 13:51] LABS: Bacteria Urine Moderate (10-30)
== END 2020-04-15 14:05 | disposition home or self-care (01) ==
LOC: OB 04-18 13:57
PROVIDERS: Family Provider Family Medicine; PCP Family Medicine; Referring Provider Family Medicine; Visit Provider Family Medicine
DX: O24.013 Pre-existing type 1 diabetes mellitus, in pregnancy, third trimester (principal); O26.23 Pregnancy care for patient with recurrent pregnancy loss, third trimester; O12.03 Gestational edema, third trimester; R51.9 Headache, unspecified; Z3A.28 28 weeks gestation of pregnancy
CPT/HCPCS: 59025; 81001; G0378; G0379

== ENCOUNTER → 2021-02-03 07:11 | Outpatient (CLI) | payer OTHER, SELFPAY ==
[2021-02-03 08:10] LABS: Hematocrit 36.4 % (36-46); Hemoglobin 11.1 g/dL (12.0-16.0); Mean Corpuscular HGB Conc 30.5 % (30-36); Mean Corpuscular Hemoglobin 19.5 PG (26-34); Mean Corpuscular Volume 63.9 fL (80-100); Platelet Count 275 X10^3/uL (150-400); Red Cell Distribution Width 18.3 % (11.6-14.8); White Blood Cell Count 6.9 X10^3/uL (4.5-11.0)
[2021-02-03 08:25] LABS: Hemoglobin A1C% w Est Avg Glu 9.5 % (4.0-6.0)
[2021-02-03 08:29] LABS: Alanine Aminotransferase 15 IU/L (<35); Albumin 3.5 g/dL (3.5-5.0); Albumin Globulin Ratio 1.3 (1.0-2.8); Alkaline Phosphatase 96 U/L (38-126); Aspartate Aminotransferase 19 IU/L (14-36); BUN Creatinine Ratio 22.9 (6-22); Bilirubin Total 0.2 mg/dL (0.2-1.3); Blood Urea Nitrogen 11 mg/dL (7-17); Calcium 8.7 mg/dL (8.4-10.2); Carbon Dioxide 24 mmol/L (22-32); Chloride 106 mmol/L (98-107); Cholesterol 178 mg/dL (140-199); Estimated Glomerular Filt Rate > 60.0 mL/min (>60); Globulin 2.6 g/dL (1.7-4.1); Glucose 264 mg/dL (70-100); HDL Cholesterol 48 mg/dL (40-60); HEMOLYSIS < 15 (0-50); LDL Cholesterol Calculated 113 mg/dL (<100); Potassium 4.5 mmol/L (3.4-5.1); Sodium 135 mmol/L (137-145); Total Protein 6.1 g/dL (6.3-8.2); Triglycerides 87 mg/dL (35-150)
[2021-02-03 08:53] LABS: TSH w/ Reflex to FT4 1.49 uIU/mL (0.47-4.68)
[2021-02-03 09:20] LABS: Erythrocyte Sedimentation Rate 9 MM/HR (0-20)
[2021-02-06 16:15] LABS: ANA Screen, IFA Negative (.)
== END ==
PROVIDERS: Family Provider Family Medicine; PCP Nurse Practitioner Family; Referring Provider Nurse Practitioner Family; Visit Provider Nurse Practitioner Family
DX: M25.50 Pain in unspecified joint (principal); E10.9 Type 1 diabetes mellitus without complications; F41.9 Anxiety disorder, unspecified; K21.9 Gastro-esophageal reflux disease without esophagitis; Z00.00 Encounter for general adult medical examination without abnormal findings; Z13.6 Encounter for screening for cardiovascular disorders
CPT/HCPCS: 36415; 80053; 80061; 83036; 84443; 85027; 85651; 86038; 86140

== ENCOUNTER → 2021-03-11 10:53 | Outpatient (CLI) | payer OTHER, SELFPAY ==
[2021-03-11 11:07] LABS: Reticulocyte Count, Percent 1.6 % (1.06-2.63)
[2021-03-11 11:21] LABS: Add Manual Diff / Slide Review NO; Basophils Absolute Auto 0 /uL (0-100); Basophils Percent Auto 0.6 % (0-2); Eosinophils Absolute Auto 100 /uL (0-450); Eosinophils Percent Auto 1.9 % (2-4); Hematocrit 38.3 % (36-46); Hemoglobin 11.7 g/dL (12.0-16.0); Lymphocytes Absolute Auto 1600 /uL (1100-4500); Lymphocytes Percent Auto 22.3 % (25-40); Mean Corpuscular HGB Conc 30.5 % (30-36); Mean Corpuscular Hemoglobin 19.9 PG (26-34); Mean Corpuscular Volume 65.4 fL (80-100); Monocytes Absolute Auto 300 /uL (0-900); Monocytes Percent Auto 4.6 % (3-14); Neutrophils Absolute Auto 5100 /uL (1500-7000); Neutrophils Percent Auto 70.6 % (50-75); Platelet Count 330 X10^3/uL (150-400); Red Blood Cell Count 5.86 X10^6/uL (4.0-5.2); White Blood Cell Count 7.2 X10^3/uL (4.5-11.0)
[2021-03-11 11:39] LABS: HEMOLYSIS < 15 (0-50)
[2021-03-11 11:41] LABS: Alanine Aminotransferase 14 IU/L (<35); Albumin 3.9 g/dL (3.5-5.0); Albumin Globulin Ratio 1.4 (1.0-2.8); Alkaline Phosphatase 93 U/L (38-126); Aspartate Aminotransferase 16 IU/L (14-36); Bilirubin Total 0.3 mg/dL (0.2-1.3); Bilirubin Unconjugated 0.2 mg/dL (0.0-1.1); Globulin 2.7 g/dL (1.7-4.1); HEMOLYSIS < 15 (0-50); Lactate Dehydrogenase 322 U/L (313-618); Total Protein 6.6 g/dL (6.3-8.2)
[2021-03-11 11:45] LABS: Anisocytosis 1+; Hypochromasia 1+; Microcytosis 1+; Poikilocytosis 2+
[2021-03-11 11:46] LABS: Ovalocytes 2+
[2021-03-11 11:49] LABS: Total Iron Binding Capacity 399 ug/dL (265-497); Transferrin 315 mg/dL (206-381)
[2021-03-11 12:15] LABS: Ferritin 6 ng/mL (6-137)
[2021-03-11 12:46] LABS: Folate 8.5 ng/mL (2.76-20.0); Vitamin B12 495 pg/mL (239-931)
[2021-03-11 14:07] LABS: Iron 26 ug/dL (37-170); Percent Iron Saturation 7 % (15-50)
[2021-03-12 08:35] LABS: Haptoglobin 157 mg/dL (33-278)
== END ==
PROVIDERS: Family Provider Family Medicine; PCP Nurse Practitioner Family; Referring Provider Nurse Practitioner Family; Visit Provider Nurse Practitioner Family
DX: D64.9 Anemia, unspecified (principal); D50.9 Iron deficiency anemia, unspecified; R71.8 Other abnormality of red blood cells
CPT/HCPCS: 36415; 80076; 82607; 82728; 82746; 83010; 83540; 83550; 83615; 85025; 85045; 86880

== ENCOUNTER → 2021-06-22 13:56 | Outpatient (CLI) | payer OTHER, SELFPAY ==
[2021-06-22 14:34] LABS: COVID19 -Nasal RAPID Negative (Negative)
== END ==
PROVIDERS: Family Provider Family Medicine; PCP Nurse Practitioner Family; Referring Provider Registered Nurse Diabetes Educator; Visit Provider Registered Nurse Diabetes Educator
DX: Z20.822 Contact with and (suspected) exposure to COVID-19 (principal)
CPT/HCPCS: 87635

== ENCOUNTER → 2022-07-29 14:54 | Outpatient (CLI) | payer OTHER, SELFPAY ==
[2022-07-29 16:38] LABS: Influenza A - CEPHEID Flu A NEGATIVE (NEGATIVE); Influenza B - CEPHEID Flu B NEGATIVE (NEGATIVE); Respiratory Syncytial Virus Negative (Negative)
[2022-07-29 16:46] LABS: COVID-19 CEPHEID 4-PLEX PCR Negative (Negative)
== END ==
PROVIDERS: Family Provider Family Medicine; PCP Registered Nurse Diabetes Educator; Visit Provider Nurse Practitioner Family
DX: J02.9 Acute pharyngitis, unspecified (principal); R53.83 Other fatigue
CPT/HCPCS: 0241U; 87070

== ENCOUNTER → 2022-08-02 12:18 | Outpatient (CLI) | payer OTHER, SELFPAY ==
[2022-08-02 13:10] LABS: Monotest Negative (Negative)
== END ==
PROVIDERS: Family Provider Family Medicine; PCP Registered Nurse Diabetes Educator; Referring Provider Registered Nurse Diabetes Educator; Visit Provider Registered Nurse Diabetes Educator
DX: J02.9 Acute pharyngitis, unspecified (principal)
CPT/HCPCS: 36415; 86318

== ENCOUNTER → 2022-08-15 09:40 | Outpatient (CLI) | payer OTHER, SELFPAY ==
[2022-08-15 11:19] LABS: Hematocrit 46.4 % (36-46); Hemoglobin 15.4 g/dL (12.0-16.0); Mean Corpuscular HGB Conc 33.1 % (30-36); Mean Corpuscular Hemoglobin 26.6 PG (26-34); Mean Corpuscular Volume 80.3 fL (80-100); Platelet Count 249 X10^3/uL (150-400); Red Blood Cell Count 5.78 X10^6/uL (4.0-5.2); Red Cell Distribution Width 14.4 % (11.6-14.8); White Blood Cell Count 7.2 X10^3/uL (4.5-11.0)
[2022-08-15 11:42] LABS: Hemoglobin A1C% w Est Avg Glu 9.7 % (4.0-6.0)
[2022-08-15 11:46] LABS: Creatinine Urine Random 194.1 mg/dL
[2022-08-15 11:49] LABS: Alanine Aminotransferase 17 IU/L (<35); Albumin 4.1 g/dL (3.5-5.0); Albumin Globulin Ratio 1.2 (1.0-2.8); Alkaline Phosphatase 79 U/L (38-126); Aspartate Aminotransferase 18 IU/L (14-36); BUN Creatinine Ratio 17.9 (6-22); Bilirubin Total 0.6 mg/dL (0.2-1.3); Blood Urea Nitrogen 10 mg/dL (7-17); Calcium 8.5 mg/dL (8.4-10.2); Carbon Dioxide 28 mmol/L (22-32); Chloride 99 mmol/L (98-107); Cholesterol 242 mg/dL (140-199); Estimated Glomerular Filt Rate > 60 mL/min (>60); Globulin 3.3 g/dL (1.7-4.1); Glucose 197 mg/dL (70-100); HDL Cholesterol 49 mg/dL (40-60); HEMOLYSIS < 15 (0-50); Iron 83 ug/dL (37-170); LDL Cholesterol Calculated 178 mg/dL (<100); Potassium 3.7 mmol/L (3.4-5.1); Sodium 137 mmol/L (137-145); Total Protein 7.4 g/dL (6.3-8.2); Triglycerides 73 mg/dL (35-150)
[2022-08-15 11:52] LABS: Microalbumi Creatinin Ratio Ur 4.1 ug/mg CR (<30); Microalbumin Urine Random 0.8 mg/dL (0-1.6)
[2022-08-15 12:04] LABS: Percent Iron Saturation 25 % (15-50); Total Iron Binding Capacity 331 ug/dL (265-497); Transferrin 261 mg/dL (206-381)
[2022-08-15 12:17] LABS: TSH w/ Reflex to FT4 1.13 uIU/mL (0.47-4.68)
[2022-08-15 12:20] LABS: Ferritin 48 ng/mL (6-137)
== END ==
PROVIDERS: Family Provider Family Medicine; PCP Registered Nurse Diabetes Educator; Referring Provider Registered Nurse Diabetes Educator; Visit Provider Registered Nurse Diabetes Educator
DX: D50.9 Iron deficiency anemia, unspecified (principal); E10.9 Type 1 diabetes mellitus without complications
CPT/HCPCS: 36415; 80053; 80061; 82043; 82570; 82728; 83036; 83540; 83550; 84443; 85027

== ENCOUNTER → 2022-12-27 14:25 | Outpatient (CLI) | payer OTHER, SELFPAY | PROVIDERS: Family Provider Family Medicine; PCP Registered Nurse Diabetes Educator; Visit Provider Nurse Practitioner Family | DX: N39.0 Urinary tract infection, site not specified (principal) | CPT/HCPCS: 87086 ==

== ENCOUNTER → 2023-10-18 09:25 | Outpatient (CLI) | payer OTHER, SELFPAY ==
[2023-10-18 10:28] LABS: Hematocrit 43.5 % (36-46); Hemoglobin 14.6 g/dL (12.0-16.0); Mean Corpuscular HGB Conc 33.5 % (30-36); Mean Corpuscular Hemoglobin 26.9 PG (26-34); Mean Corpuscular Volume 80.3 fL (80-100); Platelet Count 235 X10^3/uL (150-400); Red Blood Cell Count 5.42 X10^6/uL (4.0-5.2); Red Cell Distribution Width 14.6 % (11.6-14.8); White Blood Cell Count 6.8 X10^3/uL (4.5-11.0)
[2023-10-18 10:38] LABS: Hemoglobin A1C% w Est Avg Glu 10.1 % (4.0-6.0)
[2023-10-18 10:53] LABS: Alanine Aminotransferase 16 IU/L (<35); Albumin Globulin Ratio 1.4 (1.0-2.8); Alkaline Phosphatase 89 U/L (38-126); Aspartate Aminotransferase 20 IU/L (14-36); BUN Creatinine Ratio 21.8 (6-22); Bilirubin Total 0.4 mg/dL (0.2-1.3); Blood Urea Nitrogen 12 mg/dL (7-17); Calcium 8.7 mg/dL (8.4-10.2); Carbon Dioxide 23 mmol/L (22-32); Chloride 107 mmol/L (98-107); Cholesterol 242 mg/dL (140-199); Estimated Glomerular Filt Rate > 60 mL/min (>60); Globulin 2.8 g/dL (1.7-4.1); Glucose 253 mg/dL (70-100); HDL Cholesterol 54 mg/dL (40-60); HEMOLYSIS < 15 (0-50); LDL Cholesterol Calculated 175 mg/dL (<100); Potassium 4.1 mmol/L (3.4-5.1); Sodium 135 mmol/L (137-145); Total Protein 6.8 g/dL (6.3-8.2); Triglycerides 64 mg/dL (35-150)
[2023-10-18 11:06] LABS: Creatinine Urine Random 83.9 mg/dL
[2023-10-18 11:17] LABS: Microalbumin Urine Random < 0.6 mg/dL (0-1.6)
[2023-10-18 11:23] LABS: TSH w/ Reflex to FT4 1.03 uIU/mL (0.47-4.68)
== END ==
PROVIDERS: Family Provider Family Medicine; PCP Registered Nurse Diabetes Educator; Referring Provider Registered Nurse Diabetes Educator; Visit Provider Registered Nurse Diabetes Educator
DX: D50.9 Iron deficiency anemia, unspecified (principal); E10.9 Type 1 diabetes mellitus without complications
CPT/HCPCS: 36415; 80053; 80061; 82043; 82570; 83036; 84443; 85027

== ENCOUNTER → 2023-11-11 11:45 | Outpatient (CLI) | payer OTHER, SELFPAY | PROVIDERS: Family Provider Family Medicine; PCP Registered Nurse Diabetes Educator; Visit Provider Registered Nurse Diabetes Educator | DX: N89.8 Other specified noninflammatory disorders of vagina (principal) | CPT/HCPCS: 87210; 87220 ==